=== PATIENT | female | born 1965 | race Caucasian/White ===

== ENCOUNTER 2020-07-07 10:16 | Outpatient (CLI) | payer OTHER ==
--- NOTE | 2020-07-07 11:23 | BD ---
EXAM: Bone densitometry using DEXA HISTORY: 55 yo female. Screening for postmenopausal osteoporosis FINDINGS: L1--bone mineral density 1.024 g/sq cm; T score 0.3 ; Z score 1.2 L2--bone mineral density 1.043 g/sq cm; T score 0.1 ; Z score 1.1 L3--bone mineral density 1.001 g/sq cm; T score -0.8 ; Z score 0.3 L4--bone mineral density 0.974 g/sq cm; T score -0.8 ; Z score 0.3 Total L1-L4--bone mineral density 1.009 g/sq cm; T score -0.3 ; Z score 0.7 Left femoral neck--bone mineral density0.816; T score -0.3 ; Z score 0.7 Total proximal left femur--bone mineral density 0.975; T score 0.3 ; Z score 0.9 IMPRESSION: Normal BMD
== END 2020-07-07 10:17 | disposition home or self-care (01) ==
LOC: BICMAMMO 10:16
PROVIDERS: ATTEND Family Medicine
DX: Z13.820 Encounter for screening for osteoporosis (principal); Z78.0 Asymptomatic menopausal state
CPT/HCPCS: 77080